=== PATIENT | female | born 1965 | race Caucasian/White ===

== ENCOUNTER 2022-06-30 14:46 | Emergency (ER) | payer MEDICAID ==
[2022-06-30] MEDS ORDERED: MICROZIDE PO (15:19)
[2022-06-30] MEDS ORDERED: AMLODIPINE PO (15:24)
[2022-06-30] MEDS ORDERED: TRAMADOL HCL50 MG PO (15:25)
[2022-06-30] MEDS ORDERED: METHOCARBAMOL500 MG PO (15:25)
[2022-06-30] MEDS ORDERED: ATORVASTATIN CA20 MG PO (15:27)
[2022-06-30] MEDS ORDERED: GABAPENTIN100 MG PO (15:28)
[2022-06-30] MEDS ORDERED: VENLAFAXINE HCL75 M1 PO (15:29)
[2022-06-30 17:00] VITALS: BP 153/104
== END 2022-06-30 17:30 | disposition left against medical advice (07) ==
LOC: ED 14:46
DX: M54.50 Low back pain, unspecified (principal); F41.9 Anxiety disorder, unspecified; I10 Essential (primary) hypertension; F17.210 Nicotine dependence, cigarettes, uncomplicated; Z53.29 Procedure and treatment not carried out because of patient's decision for other reasons